=== PATIENT | male | born 1995 | race Caucasian/White ===

== ENCOUNTER 2020-09-30 18:55 | Emergency (ER) | payer OTHER ==
[2020-09-30] MEDS ORDERED: NORCO 5-325 TA1 EACH PO ×2 (20:40→21:06)
[2020-10-04] MEDS ORDERED: PAROXETINE 20MG20 MG PO (14:14)
[2020-10-05] MEDS ORDERED: PERCOCET 5-3251 EACH PO (09:50)
== END 2020-09-30 21:35 | disposition home or self-care (01) ==
LOC: FER 18:55
DX: S82.841A Displaced bimalleolar fracture of right lower leg, initial encounter for closed fracture (principal); W20.1XXA Struck by object due to collapse of building, initial encounter; Y92.002 Bathroom of unspecified non-institutional (private) residence as the place of occurrence of the external cause

== ENCOUNTER → 2020-10-05 | Day surgery (SDC) | payer OTHER ==
[~2020-10-05] MED LIST: NORCO 5-325 TA1 EACH PO; PAROXETINE 20MG20 MG PO; PERCOCET 5-3251 EACH PO
[2020-10-05 10:40] LABS: HCT 44.1 % (42.0-52.0); HGB 14.6 g/dl (13.2-18.0); MCHC 33.1 g/dL (32.0-36.0); MCV 87.7 fL (78.0-100.0); MPV 10.8 fL (6.0-9.5); RBC 5.03 M/uL (4.70-6.00); WBC 4.6 K/uL (4.0-10.5)
[2020-10-05 11:00] LABS: ALBUMIN 3.6 g/dL (3.4-5.0); BILIRUBIN - TOTAL 1.1 mg/dL (0.2-1.0); BUN/CREAT RATIO (CALC) 21.2 RATIO; CREATININE 0.66 mg/dL (0.67-1.17); GLOBULIN (CALCULATION) 4.3 g/dL; POTASSIUM 3.8 mmol/L (3.5-5.1); TOTAL PROTEIN 7.9 g/dL (6.4-8.2)
== END | disposition home or self-care (01) ==
LOC: FAS 09:47
PROVIDERS: Orthopaedic Surgery
DX: S82.61XA Displaced fracture of lateral malleolus of right fibula, initial encounter for closed fracture (principal); F41.9 Anxiety disorder, unspecified; R12 Heartburn; X50.1XXA Overexertion from prolonged static or awkward postures, initial encounter; Z20.822 Contact with and (suspected) exposure to COVID-19
CPT/HCPCS: 36415; 71045; 73600; 76000; 80053; C1713; J1100; J1885; J2250; J2405; J2704; J2795; J3010; J7120